=== PATIENT | female | born 1995 | race Caucasian/White ===

== ENCOUNTER 2025-10-02 20:40 | Emergency (ER) | payer OTHER ==
[2025-10-02] MEDS: cefTRIAXone 1 GM, Lidocaine 1% 2.1 ML IM ONE (23:03)
== END 2025-10-02 23:35 | disposition home or self-care (01) ==
LOC: JD.ED 20:40
DX: S62.665B Nondisplaced fracture of distal phalanx of left ring finger, initial encounter for open fracture (principal); W54.0XXA Bitten by dog, initial encounter
CPT/HCPCS: 12001; 73120; 96372; 99284; A9270; J0696; J2003; 12002; 29125